=== PATIENT | male | born 1955 ===

== ENCOUNTER 2020-12-10 08:34 | Outpatient (CLI) | payer MEDICARE, SELFPAY ==
--- NOTE | ~2020-12-10 | CT_ITS ---
EXAMINATION: CT diagnostic chest w con DATE: 12/10/2020 09:59 INDICATION: Sternal pain. Costochondritis. TECHNIQUE: Computed tomography (CT) of the chest was performed with 100 mL Omnipaque-350 intravenous contrast. Additional 3D reconstructions utilizing coronal maximum intensity projection (MIP) were per formed. Automated exposure control and iterative reconstruction technique were employed. The dose-dell gth product was 262.19 mGy-cm. COMPARISON: None FINDINGS: Small calcified right lower lobe nodule consistent with old granulomatous disease. Minimal dependent atelectasis in the bilateral lower lobes. No pneumonia, pulmonary edema or other pulmonary infiltrate s. No pleural effusion. Heart size is normal. No pericardial effusion. Thoracic aorta is normal in ca liber with no dissection. No pathologically enlarged thoracic lymphadenopathy. Multiple low-attenuati on hepatic cysts the largest measuring 2.2 cm. Chronic mild anterior wedging at T11 and T12. Old heal ed sternal fracture. No acute osseous abnormality. IMPRESSION: 1. Old healed sternal fracture. No acute osseous abnormality. 2. No acute cardiopulmonary disease. Reviewed, dictated and finalized at location A.
[2020-12-10 09:52] LABS: Estimated Glomerular Filt Rate 60
== END 2020-12-10 08:35 | disposition home or self-care (01) ==
PROVIDERS: PCP Internal Medicine; Visit Provider Nurse Practitioner Family
DX: R07.2 Precordial pain (principal)
CPT/HCPCS: 71260; Q9967

== ENCOUNTER 2023-12-01 13:53 | Outpatient (CLI) | payer MEDICARE, SELFPAY ==
--- NOTE | ~2023-12-01 | XR_ITS ---
XR chest 2V Ordering provider: Flako Holland MD History: 68 years Male with . Chronic cough . Comparison: January 23, 2016 FINDINGS: MEDIASTINUM: The cardiac silhouette is not enlarged. LUNGS: No infiltrates, effusions or pneumothorax. OTHER: No free air under the diaphragm. IMPRESSION: No acute cardiopulmonary pathology. Reviewed, dictated and finalized at location A.
== END 2023-12-01 13:54 ==
PROVIDERS: PCP Family Medicine; Visit Provider Family Medicine
DX: R05.3 Chronic cough (principal)
CPT/HCPCS: 71046